=== PATIENT | female | born 1940 | race Two or more races ===

== ENCOUNTER 2017-01-03 11:08 | Outpatient (CLI) | payer MEDICARE, BC ==
[~2017-01-03 11:08] MED LIST: LEVO50TA; ROSU10TA; TRAZ-144; VENL50TA2
[2017-01-03 11:52] LABS: BASOPHILS % (AUTO) 0.7 % (0.0-2.0); EOSINOPHILS # (AUTO) 0.1 /CMM (0.0-0.7); EOSINOPHILS % (AUTO) 2.7 % (0.0-6.0); HEMATOCRIT 39 % (33-45); HEMOGLOBIN 12.7 g/dL (11.5-14.8); LYMPHOCYTES # (AUTO) 1.1 /CMM (0.8-4.8); LYMPHOCYTES % (AUTO) 22.8 % (20.0-44.0); MEAN CORPUSCULAR HEMOGLOBIN 29 PG (26.0-33.0); MEAN CORPUSCULAR HGB CONC 33 g/dl (31.0-36.0); MEAN CORPUSCULAR VOLUME 90 fL (82-100); MONOCYTES # (AUTO) 0.3 /CMM (0.1-1.30); MONOCYTES % (AUTO) 6.6 % (2.0-12.0); NEUTROPHILS # (AUTO) 3.3 /CMM (1.8-8.9); NEUTROPHILS % (AUTO) 67.2 % (43.0-81.0); PLATELET COUNT (AUTO) 221 /CMM (150-450); RDW COEFFICIENT OF VARIATION 14.1 (11.5-15.0); RED BLOOD CELL COUNT(AUTO) 4.35 MIL/uL (4.0-5.2)
[2017-01-03 12:03] LABS: CALCIUM, SERUM 8.6 mg/dL (8.5-10.1); CARBON DIOXIDE 34 mmol/L (21-32); CHLORIDE 107 mmol/L (98-107); GLUCOSE 98 mg/dL (74-106); POTASSIUM 4.6 mmol/L (3.5-5.1); SODIUM SERUM 144 mmol/L (136-145); UREA NITROGEN, BLOOD 15 mg/dL (7-18)
[2017-01-03 12:06] LABS: INR 0.95 (0.87-1.13); PROTHROMBIN TIME 10.1 SECS (9.5-12.7)
[2017-01-03 12:11] LABS: ALANINE AMINOTRANSFERASE 21 U/L (12-78); ALBUMIN 3.7 g/dL (3.4-5.0); ALKALINE PHOSPHATASE 66 U/L (46-116); ASPARTATE AMINOTRANSFERASE 17 U/L (15-37); BILIRUBIN,TOTAL 0.4 mg/dL (0.2-1.0); TOTAL PROTEIN, SERUM 6.7 g/dL (6.4-8.2)
[2017-01-03 12:17] LABS: CHOLESTEROL 180 mg/dL (<200); HDL CHOLESTEROL 80 mg/dL (40-60); LDL 85 mg/dL (0-99); THYROID STIMULATING HORMONE 0.974 uIU/mL (0.358-3.74); TRIGLYCERIDES 63 mg/dL (30-150)
== END 2017-01-03 23:59 | disposition home or self-care (01) ==
LOC: LAB 11:08
PROVIDERS: ATTEND Internal Medicine Interventional Cardiology
DX: I10 Essential (primary) hypertension (principal); C50.919 Malignant neoplasm of unspecified site of unspecified female breast; E21.3 Hyperparathyroidism, unspecified; M79.7 Fibromyalgia; R79.1 Abnormal coagulation profile
CPT/HCPCS: 36415; 80053-TC; 80061-TC; 82306; 84439-TC; 84443-TC; 85025-TC; 85610-TC; 85652-TC

== ENCOUNTER 2017-12-07 13:46 | Emergency (ER) | payer BC, MEDICARE ==
[~2017-12-07] VITALS: Ht 172.7 cm; Wt 77.1 kg
[~2017-12-07 13:46] MED LIST changes: -TRAZ-144; +TRAZ-182
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
--- NOTE | 2017-12-07 14:50 | NUR ---
SUPERVISOR SCRAP PREPARATION AT FOR BLOOD DRAW.
[2017-12-07 15:03] LABS: BASOPHILS # (AUTO) 0.1 /CMM (0.0-0.2); BASOPHILS % (AUTO) 1.1 % (0.0-2.0); EOSINOPHILS % (AUTO) 1.8 % (0.0-6.0); HEMATOCRIT 38 % (33-45); HEMOGLOBIN 12.4 g/dL (11.5-14.8); LYMPHOCYTES # (AUTO) 1.3 /CMM (0.8-4.8); LYMPHOCYTES % (AUTO) 26.9 % (20.0-44.0); MEAN CORPUSCULAR HEMOGLOBIN 30 PG (26.0-33.0); MEAN CORPUSCULAR HGB CONC 33 g/dl (31.0-36.0); MEAN CORPUSCULAR VOLUME 91 fL (82-100); MONOCYTES # (AUTO) 0.3 /CMM (0.1-1.30); MONOCYTES % (AUTO) 7.1 % (2.0-12.0); NEUTROPHILS # (AUTO) 2.9 /CMM (1.8-8.9); NEUTROPHILS % (AUTO) 63.1 % (43.0-81.0); PLATELET COUNT (AUTO) 205 /CMM (150-450); RDW COEFFICIENT OF VARIATION 12.8 (11.5-15.0); RED BLOOD CELL COUNT(AUTO) 4.16 MIL/uL (4.0-5.2); WHITE BLOOD COUNT (AUTO) 4.7 K/uL (4.3-11.0)
[2017-12-07 15:16] LABS: CALCIUM, SERUM 8.6 mg/dL (8.5-10.1); CARBON DIOXIDE 31 mmol/L (21-32); CHLORIDE 103 mmol/L (98-107); CREATININE 1.2 mg/dL (0.6-1.3); GLUCOSE 95 mg/dL (74-106); POTASSIUM 4.4 mmol/L (3.5-5.1); SODIUM SERUM 139 mmol/L (136-145); UREA NITROGEN, BLOOD 21 mg/dL (7-18)
[2017-12-07 15:22] LABS: ALANINE AMINOTRANSFERASE 14 U/L (12-78); ALBUMIN 3.5 g/dL (3.4-5.0); ALKALINE PHOSPHATASE 64 U/L (46-116); ASPARTATE AMINOTRANSFERASE 17 U/L (15-37); BILIRUBIN,DIRECT 0.1 mg/dL (0.0-0.2); BILIRUBIN,TOTAL 0.3 mg/dL (0.2-1.0); TOTAL PROTEIN, SERUM 6.4 g/dL (6.4-8.2)
[2017-12-07 16:45] VITALS: BP 125/77
--- NOTE | 2017-12-07 16:45 | NUR ---
Patient discharged to home in stable condition. Written and verbal after care instructions given. Patient verbalizes understanding of instruction.
== END 2017-12-07 16:46 | disposition home or self-care (01) ==
LOC: ER 13:47
DX: S16.1XXA Strain of muscle, fascia and tendon at neck level, initial encounter (principal); S39.012A Strain of muscle, fascia and tendon of lower back, initial encounter; S20.212A Contusion of left front wall of thorax, initial encounter; G44.209 Tension-type headache, unspecified, not intractable; Z88.0 Allergy status to penicillin; Z85.3 Personal history of malignant neoplasm of breast; F41.9 Anxiety disorder, unspecified; F32.9 Major depressive disorder, single episode, unspecified; V43.52XA Car driver injured in collision with other type car in traffic accident, initial encounter; Y93.89 Activity, other specified; Y92.89 Other specified places as the place of occurrence of the external cause; Y99.8 Other external cause status
CPT/HCPCS: 36415; 70450-TC; 71045-TC; 72040-TC; 72100-TC; 80048-TC; 80076-TC; 85025-TC; A4606; Z7610

== ENCOUNTER 2019-01-05 20:50 | Inpatient (IN) | payer BC, MEDICARE ==
[~2019-01-05] VITALS: Ht 172.7 cm; Wt 82.1 kg
[~2019-01-05 20:50] MED LIST changes: -ROSU10TA; +ROSU10TA2
--- NOTE | 2019-01-05 20:50 | NUR ---
BIB C/O EPIGASTRIC PAIN WITH PALPITATION SINCE 1749, TO ER BED 5, HOOKED TO MANAGER CONTRACT, PATIENT NOTED WITH HR OF 145, DR MILLAN AT BEDSIDE, IV PERIPHERAL LINE ESTABLISHED AT LAC 16G. VAGAL MANEUVER TRIED BY , NO CHANGE IN HEART RATE, HOOKED TO CARDIOVERTER. Addendum: 01/05/19 at 2355 by KARINA BIB C/O EPIGASTRIC PAIN WITH PALPITATION SINCE 1749, TO ER BED 5, HOOKED TO MANAGER CONTRACT, PATIENT NOTED SVT OF 145, DR MILLAN AT BEDSIDE, IV PERIPHERAL LINE ESTABLISHED AT LAC 16G. VAGAL MANEUVER TRIED BY , NO CHANGE IN HEART RATE, HOOKED TO CARDIOVERTER.
[2019-01-05] MEDS ORDERED: ADENOSINE 6 MG/2 ML VIAL ONE (21:10)
[2019-01-05 21:14] LABS: BASOPHILS # (AUTO) 0.1 /CMM (0.0-0.2); BASOPHILS % (AUTO) 0.6 % (0.0-2.0); EOSINOPHILS % (AUTO) 0.8 % (0.0-6.0); HEMATOCRIT 45 % (33-45); HEMOGLOBIN 14.6 g/dL (11.5-14.8); LYMPHOCYTES # (AUTO) 1.2 /CMM (0.8-4.8); LYMPHOCYTES % (AUTO) 13.9 % (20.0-44.0); MEAN CORPUSCULAR HGB CONC 33 g/dl (31.0-36.0); MEAN CORPUSCULAR VOLUME 92 fL (82-100); MONOCYTES # (AUTO) 0.5 /CMM (0.1-1.30); MONOCYTES % (AUTO) 5.6 % (2.0-12.0); NEUTROPHILS # (AUTO) 6.6 /CMM (1.8-8.9); NEUTROPHILS % (AUTO) 79.1 % (43.0-81.0); PLATELET COUNT (AUTO) 250 /CMM (150-450); RED BLOOD CELL COUNT(AUTO) 4.87 MIL/uL (4.0-5.2); WHITE BLOOD COUNT (AUTO) 8.4 K/uL (4.3-11.0)
--- NOTE | 2019-01-05 21:16 | NUR ---
INITIAL DOSE OF ADENOSINE 6MG RAPID IV PUSH GIVEN, , RN AND TECH AT BEDSIDE. NO CHANGE IN HEART RATE.
--- NOTE | 2019-01-05 21:22 | NUR ---
2ND DOSE OF ADENOSINE GIVEN 12MG WITH RAPID IV PUSH. MD AND RN AT BEDSIDE. PATIENTT'S HR TO 87BPM. PATIENT AOX4, VERBALIZED "I FEEL WEIRD". VSS.
[2019-01-05 21:23] LABS: CALCIUM, SERUM 9.3 mg/dL (8.5-10.1); CARBON DIOXIDE 28 mmol/L (21-32); CHLORIDE 99 mmol/L (98-107); CREATININE 1.4 mg/dL (0.6-1.3); GLUCOSE 136 mg/dL (74-106); POTASSIUM 4.4 mmol/L (3.5-5.1); SODIUM SERUM 138 mmol/L (136-145); UREA NITROGEN, BLOOD 25 mg/dL (7-18)
[2019-01-05 21:29] LABS: ALANINE AMINOTRANSFERASE 16 U/L (12-78); ALKALINE PHOSPHATASE 74 U/L (46-116); ASPARTATE AMINOTRANSFERASE 20 U/L (15-37); BILIRUBIN,DIRECT 0.1 mg/dL (0.0-0.2); BILIRUBIN,TOTAL 0.3 mg/dL (0.2-1.0); LIPASE 517 U/L (73-393); TOTAL PROTEIN, SERUM 7.5 g/dL (6.4-8.2)
[2019-01-05] MEDS ORDERED: ADENOSINE 6 MG/2 ML VIAL IVP ONE ×2 (21:30→22:30)
--- NOTE | 2019-01-05 21:53 | NUR ---
LACTIC ACID 2.3. MD AWARE.
[2019-01-05] MEDS ORDERED: IV NS 0.9% 1,000 ML BAG IV ONE (22:00)
--- NOTE | 2019-01-05 22:57 | NUR ---
DR CAMPUZANO AT BEDSIDE
[2019-01-05] MEDS ORDERED: Z GUARD REMEDY 2 OZ OINT TP PRN (23:30)
[2019-01-05] MEDS ORDERED: ACETAMINOPHEN 325 MG TABLET PO PRN (23:30)
[2019-01-05] MEDS ORDERED: ONDANSETRON HCL/PF 4 MG/2 ML VIAL IVP PRN (23:30)
--- NOTE | 2019-01-05 23:40 | NUR ---
REPORT GIVEN TO STEPHIE OF TELE UNIT
--- NOTE | 2019-01-05 23:47 | NUR ---
MS RN NOTES Received patient A/O x4, from ER via gurney accompanied by 2 ER staff. Admitted to [facility] 309-2 due to acute pancreatitis under the service of Dr. Castro. Assisted to bed comfortably, noted ambulatory with steady gait. Admission routine done. Belongings inventory completed by the assigned ENERGY CONSERVATION REPRESENTATIVE. Initial skin assessment done, no skin issues identified, skin intact. Admission ordered noted and carried out. Initiated IVF 1/2 NS @ 150ml/hr as ordered. Instructed patient to call for help when getting out of bed. Instructed on clear liquid diet, patient verbalized understanding. Kept bed low and locked, siderails up, call light within easy reach. Call light within easy reach. Will continue to monitor accordingly.
[2019-01-05] MEDS: IV 1/2NS 1000 ML 1,000 ML IV PRN (23:49)
[2019-01-06] VITALS: BP 151/67
[2019-01-06] MEDS: IV 1/2NS 1000 ML 1,000 ML IV PRN (06:34)
--- NOTE | 2019-01-06 06:39 | NUR ---
MS RN CLOSING NOTES Patient asleep, easily awaken. On RA, no SOB/respiratory distress noted. No complaints of discomfort/pain at this time. All due meds given as ordered, no ASE noted. All nursing needs attended, no new complaints. Kept on bed clean, dry and comfortable. Call light within easy reach. Endorsed to the next shift.
[2019-01-06] MEDS ORDERED: LEVOTHYROXINE SODIUM 50 MCG TABLET PO SCH (07:30)
[2019-01-06 07:57] LABS: BILIRUBIN,TOTAL 0.4 mg/dL (0.2-1.0); CREATININE 0.9 mg/dL (0.6-1.3); MAGNESIUM 1.9 mg/dL (1.8-2.4); PHOSPHORUS 3.8 mg/dL (2.5-4.9); POTASSIUM 4.1 mmol/L (3.5-5.1); TOTAL PROTEIN, SERUM 5.9 g/dL (6.4-8.2)
[2019-01-06 08:00] VITALS: BP 131/82
--- NOTE | 2019-01-06 08:00 | NUR ---
m/s hoop riveting machine operator helper: cardio consult seen and examined by dr. gracia at this time and okay for pt to go home today as stated. awaiting md de la garza and order.
[2019-01-06] MEDS ORDERED: IV NS 0.9% 1,000 ML IV PRN (08:07)
[2019-01-06 08:12] LABS: THYROID STIMULATING HORMONE 3.886 uIU/mL (0.358-3.74)
[2019-01-06 08:38] LABS: BASOPHILS % (AUTO) 0.6 % (0.0-2.0); EOSINOPHILS % (AUTO) 0.9 % (0.0-6.0); HEMATOCRIT 39 % (33-45); HEMOGLOBIN 12.5 g/dL (11.5-14.8); LYMPHOCYTES # (AUTO) 1.7 /CMM (0.8-4.8); LYMPHOCYTES % (AUTO) 26.9 % (20.0-44.0); MEAN CORPUSCULAR HGB CONC 33 g/dl (31.0-36.0); MEAN CORPUSCULAR VOLUME 91 fL (82-100); MONOCYTES # (AUTO) 0.5 /CMM (0.1-1.30); MONOCYTES % (AUTO) 7.3 % (2.0-12.0); NEUTROPHILS # (AUTO) 4.1 /CMM (1.8-8.9); NEUTROPHILS % (AUTO) 64.3 % (43.0-81.0); PLATELET COUNT (AUTO) 196 /CMM (150-450); RED BLOOD CELL COUNT(AUTO) 4.22 MIL/uL (4.0-5.2); WHITE BLOOD COUNT (AUTO) 6.3 K/uL (4.3-11.0)
[2019-01-06 08:40] LABS: PHOSPHORUS 3.8 mg/dL (2.5-4.9)
[2019-01-06 08:50] LABS: THYROID STIMULATING HORMONE 3.597 uIU/mL (0.358-3.74)
--- NOTE | 2019-01-06 09:00 | NUR ---
m/s resistance machine welder setter: md visit seen and examined by dr. webster at this time.
--- NOTE | 2019-01-06 10:00 | NUR ---
m/s rn allergy: notes received order to d'c pt home with Discharge instructions <after echo done, f/u with cardiology and PMD in 1 week. pt aware and faxed prescription to her pharmacy. order acknowledged. diet advance as ordered by md. will continue to monitor.
[2019-01-06 10:01] LABS: BAND % (MANUAL) 1 % (0.0-5.0); EOSINOPHILS % (MANUAL) 1 % (0-4); LYMPHOCYTES % (MANUAL) 32 % (16-48); MONOCYTES % (MANUAL) 7 % (0-11.0); NEUTROPHILS % (MANUAL) 59 (42-76)
[2019-01-06] MEDS ORDERED: METO25TA20 PO (10:03)
--- NOTE | 2019-01-06 11:50 | NUR ---
m/s optometry doctor: notes lunch served. instructed to call for assistance. pt to go home if tolerates advance diet.
[2019-01-06] MEDS ORDERED: METOPROLOL TARTRATE 25 MG TABLET PO SCH (12:00)
[2019-01-06 12:22] VITALS: BP 126/67
--- NOTE | 2019-01-06 12:30 | NUR ---
m/s tanning wheel operator: notes pt tolerated her regular (cardiac) food with no c/o n/v or any abdominal discomfort.
--- NOTE | 2019-01-06 13:00 | NUR ---
m/s road tester: notes discharge instructions with prescription given to pt and verbalized understanding. h/l removed with tip intact with no bleeding noted. pt called his friend to pick him up.
--- NOTE | 2019-01-06 13:40 | NUR ---
m/s automotive general manager: discharged discharged home in stable condition with all d'c papers and valuables via private car accompanied by friend.
[2019-01-06] MEDS ORDERED: TRAZODONE 50 MG TABLET PO SCH (22:00)
== END 2019-01-06 13:34 | disposition home or self-care (01) | DRG 438 ==
LOC: ER 20:55 → TELE 23:20 → MED 01-06 02:21
PROVIDERS: ADMIT Internal Medicine; ATTEND Student in an Organized Health Care Education/Training Program
DX: K85.90 Acute pancreatitis without necrosis or infection, unspecified (principal); N17.0 Acute kidney failure with tubular necrosis; I47.1 Supraventricular tachycardia; E87.2 Acidosis; E86.0 Dehydration; E78.5 Hyperlipidemia, unspecified; F41.9 Anxiety disorder, unspecified; I48.0 Paroxysmal atrial fibrillation; Z86.73 Personal history of transient ischemic attack (TIA), and cerebral infarction without residual deficits; Z86.011 Personal history of benign neoplasm of the brain; Z85.3 Personal history of malignant neoplasm of breast; Z90.49 Acquired absence of other specified parts of digestive tract; F32.9 Major depressive disorder, single episode, unspecified; Z88.0 Allergy status to penicillin; E03.9 Hypothyroidism, unspecified; I10 Essential (primary) hypertension
CPT/HCPCS: 36415; 71045-TC; 80048-TC; 80053-TC; 80061-TC; 80076-TC; 83605-TC; 83690-TC; 83735-TC; 84100-TC; 84439-TC; 84443-TC; 84484-TC; 85025-TC; 87081-TC; 93307-TC; G0378; J0153; J3490; J7030

== ENCOUNTER 2019-09-01 23:53 | Inpatient (IN) | payer BC ==
[~2019-09-01] VITALS: Ht 172.7 cm; Wt 86.2 kg
[~2019-09-01 23:53] MED LIST changes: +METO25TA20 PO
[2019-09-02] MEDS ORDERED: IV NS 0.9% 500 ML BAG IV ONE
[2019-09-02] MEDS ORDERED: ADENOSINE 6 MG/2 ML VIAL IVP ONE
--- NOTE | 2019-09-02 | NUR ---
bibra for c/o L sided CP and SVT. pt A, Ox4. w/ mild c/o mild "muscle CP" pt has rec'd adenosin 6mg IV architectural project captain. w/ LAC 20G IV line . unable to flush. pt was placed on a monitor, EMT at the bed side for ECG. HR on 140s. A new IV line on LAC was started and kept pt comfortable. on continuous monitoring.
[2019-09-02] MEDS ORDERED: ADENOSINE 6 MG/2 ML VIAL ONE (00:04)
[2019-09-02 00:24] LABS: MEAN CORPUSCULAR VOLUME 91 fL (82-100)
[2019-09-02 00:29] LABS: BASOPHILS # (AUTO) 0.1 /CMM (0.0-0.2); BASOPHILS % (AUTO) 1.1 % (0.0-2.0); EOSINOPHILS % (AUTO) 1.7 % (0.0-6.0); HEMATOCRIT 41 % (33-45); HEMOGLOBIN 13.4 g/dL (11.5-14.8); LYMPHOCYTES # (AUTO) 1.9 /CMM (0.8-4.8); LYMPHOCYTES % (AUTO) 29.1 % (20.0-44.0); MEAN CORPUSCULAR HGB CONC 33 g/dl (31.0-36.0); MONOCYTES # (AUTO) 0.6 /CMM (0.1-1.30); MONOCYTES % (AUTO) 9.3 % (2.0-12.0); NEUTROPHILS # (AUTO) 3.8 /CMM (1.8-8.9); NEUTROPHILS % (AUTO) 58.8 % (43.0-81.0); PLATELET COUNT (AUTO) 188 /CMM (150-450); RED BLOOD CELL COUNT(AUTO) 4.52 MIL/uL (4.0-5.2); WHITE BLOOD COUNT (AUTO) 6.5 K/uL (4.3-11.0)
--- NOTE | 2019-09-02 00:31 | NUR ---
x. ray at the bed side
[2019-09-02 00:43] LABS: CALCIUM, SERUM 8.8 mg/dL (8.5-10.1); CARBON DIOXIDE 30 mmol/L (21-32); CHLORIDE 103 mmol/L (98-107); CREATININE 1.2 mg/dL (0.6-1.3); GLUCOSE 113 mg/dL (74-106); POTASSIUM 4.2 mmol/L (3.5-5.1); SODIUM SERUM 141 mmol/L (136-145); UREA NITROGEN, BLOOD 26 mg/dL (7-18)
[2019-09-02 00:49] LABS: ALANINE AMINOTRANSFERASE 18 U/L (12-78); ALBUMIN 3.8 g/dL (3.4-5.0); ALKALINE PHOSPHATASE 60 U/L (46-116); ASPARTATE AMINOTRANSFERASE 18 U/L (15-37); B-TYPE NATRIURETIC PEPTIDE 243 PG/ML (0-125); BILIRUBIN,DIRECT 0.1 mg/dL (0.0-0.2); BILIRUBIN,TOTAL 0.3 mg/dL (0.2-1.0)
--- NOTE | 2019-09-02 00:50 | NUR ---
CALLED SUP FOR TELE BED
--- NOTE | 2019-09-02 01:57 | NUR ---
REPORT GIVEN TO ELINA
[2019-09-02] MEDS ORDERED: MAGNESIUM HYDROXIDE 30 ML UDC PO PRN (02:00)
[2019-09-02] MEDS ORDERED: ZOLPIDEM TARTRATE 5 MG TABLET PO PRN (02:00)
[2019-09-02] MEDS ORDERED: HYDROCODONE/APAP 5/325MG 1 EACH TABLET PO PRN (02:00)
[2019-09-02] MEDS ORDERED: ONDANSETRON HCL/PF 4 MG/2 ML VIAL IVP PRN (02:00)
[2019-09-02] MEDS ORDERED: MAG HYDROX/AL HYDROX/SIMETH 30 ML UDC PO PRN (02:00)
[2019-09-02] MEDS ORDERED: Z GUARD REMEDY 2 OZ OINT TP PRN (02:00)
[2019-09-02] MEDS ORDERED: ACETAMINOPHEN 325 MG TABLET PO PRN (02:00)
--- NOTE | 2019-09-02 02:00 | NUR ---
QUILL FIXER NOTES RECEIVED REPORT FROM ESTRELLA REEVES; AWAITING ARRIVAL OF PATIENT TO UNIT
[2019-09-02 02:18] VITALS: BP 151/57
--- NOTE | 2019-09-02 02:30 | NUR ---
LAP WELDER ADMITTING NOTES PATIENT ARRIVED ON UNIT VIA GURNEY 0230; A/OX4; BREATHING EVEN AND UNLABORED; TOLERATING ROOM AIR WELL; NO SOB NOTED; PATIENT AMBULATORY AND SKIN IS INTACT; PATIENT DENIES CHEST PAIN/CHEST MUSCLE PAIN AT THIS TIME; TELE MONITOR ATTACHED AND READS SINUS ROBERT 55BPM; L AC #18 SL INTACT AND PATENT; FLUSHING WELL; NO S/S OF REDNESS OR INFILTRATION NOTED; SAFETY PRECAUTIONS IMPLEMENTED; BED LOCKED IN LOW POSITION; SIDE RAILS X2; CALL LIGHT WITHIN REACH; WILL CONT TO MONITOR
--- NOTE | 2019-09-02 02:30 | NUR ---
PT WAS TRANSFERRED TO [facility]
[2019-09-02 02:57] VITALS: BP 151/57
[2019-09-02 04:00] VITALS: BP 122/75
--- NOTE | 2019-09-02 04:00 | NUR ---
SUPERVISOR KOSHER DIETARY SERVICE NOTES UNABLE TO OBTAIN PATIENT TEMPERATURE; NO MORE COVER/PROBES FOR THERMOMETER; WILL CONT TO MONITOR; LAST TEMP: 98.7F
--- NOTE | 2019-09-02 06:42 | NUR ---
DIRECTOR OF ROTC CLOSING NOTES PATIENT RESTING IN BED COMFORTABLY; A/OX4; BREATHING EVEN AND UNLABORED; TOLERATING ROOM AIR WELL; NO SOB NOTED; PATIENT DENIES CHEST PAIN; TELE MONITOR READS SINUS ROBERT 57BPM WITH 1ST DEGREE HB, PACS AND PVCS; L AC #18 SL INTACT AND PATENT; FLUSHING WELL; NO S/S OF REDNESS OR INFILTRATION NOTED; ALL NEEDS RENDERED; ABLE TO MAKE NEEDS KNOWN; SAFETY PRECAUTIONS IMPLEMENTED; BED LOCKED IN LOW POSITION; SIDE RAILS X2; CALL LIGHT WITHIN REACH; WILL ENDORSE HOME TO ONCOMING SHIFT; WILL INFORM ON COMING SHIFT REGARDING PATIENT MEDICATION;
--- NOTE | 2019-09-02 07:30 | NUR ---
RECEIVED PT. ALERT AND ORIENTED X 4. NO ACUTE DISTRESS.
[2019-09-02 08:00] VITALS: BP 135/69
[2019-09-02 08:42] LABS: THYROID STIMULATING HORMONE 4.974 uIU/mL (0.358-3.74)
[2019-09-02] MEDS: LEVOTHYROXINE SODIUM 50 MCG TABLET PO SCH ×2 (09:00→09:34)
--- NOTE | 2019-09-02 09:00 | NUR ---
DR. SIGNH IN TO SEE PT. ORDERS GIVEN.
[2019-09-02] MEDS: VENLAFAXINE XR 150 MG CAP.SR.24H PO SCH ×2 (09:34→09:42)
[2019-09-02] MEDS: ENOXAPARIN SODIUM 40 MG/0.4 ML DISP.SYRIN SQ SCH ×2 (09:36→09:42)
[2019-09-02 12:00] VITALS: BP 142/73
[2019-09-02] MEDS ORDERED: METOPROLOL TARTRATE 25 MG TABLET PO SCH (12:00)
[2019-09-02 12:08] VITALS: BP 142/73
--- NOTE | 2019-09-02 15:05 | NUR ---
ZAHRAA LIVE MD IN AND DISCHARGE ORDER WRITTEN,GIVEN ALL INSTRUCTIONS HEP LOCK OUT,GIVEN RX.AWARE TO FOLLOW UP WITH DR. SINGH.2ND TROPONIN DONE AND RESULT GIVEN TO DR. SINGH AND DR LIVE.TAKEN TO [facility] VIA W/C ACCOMPANIED BY CORRIE.ADRIANNA DE LA VEGA IN [facility].
[2019-09-02] MEDS ORDERED: TRAZODONE 50 MG TABLET PO SCH ×3 (22:00)
== END 2019-09-02 15:15 | disposition home or self-care (01) | DRG 282 ==
LOC: ER 23:54 → TELE 09-02 01:16
DX: I47.1 Supraventricular tachycardia (principal); I21.A1 Myocardial infarction type 2; I10 Essential (primary) hypertension; E78.5 Hyperlipidemia, unspecified; E03.9 Hypothyroidism, unspecified; D32.9 Benign neoplasm of meninges, unspecified; F32.9 Major depressive disorder, single episode, unspecified; F41.9 Anxiety disorder, unspecified; I25.2 Old myocardial infarction; I48.0 Paroxysmal atrial fibrillation; Z90.49 Acquired absence of other specified parts of digestive tract; Z85.3 Personal history of malignant neoplasm of breast
CPT/HCPCS: 36415; 71045-TC; 80048-TC; 80076-TC; 83690-TC; 83880; 84439-TC; 84443-TC; 84484-TC; 85025-TC; 85730-TC; 87081-TC; 93307-TC; G0378; J0153; J1650

== ENCOUNTER 2025-03-09 13:40 | Emergency (ER) | payer BC ==
[~2025-03-09] VITALS: Ht 172.7 cm; Wt 84.4 kg
[2025-03-09 14:47] LABS: PLATELET COUNT (AUTO) 255 K/uL (150-450); RED BLOOD CELL COUNT(AUTO) 4.05 MIL/uL (4.0-5.2); RED CELL DISTRIBUTION WIDTH 16.7 % (11.5-15.0); WHITE BLOOD COUNT (AUTO) 11.0 K/uL (4.3-11.0)
[2025-03-09 15:01] LABS: CALCIUM, SERUM 8.2 mg/dL (8.5-10.1); CREATININE 1.1 mg/dL (0.6-1.3); SODIUM SERUM 142 mmol/L (136-145); UREA NITROGEN, BLOOD 19 mg/dL (7-18)
[2025-03-09 15:06] LABS: ASPARTATE AMINOTRANSFERASE 19 U/L (15-37); TOTAL PROTEIN, SERUM 6.5 g/dL (6.4-8.2)
[2025-03-09 15:10] LABS: NT-PRO BNP 147.0 pg/mL (0-125)
[2025-03-09 17:16] LABS: APPEARANCE,URINE CLEAR (CLEAR); BLOOD, URINE NEGATIVE Ery/uL (NEGATIVE); LEUKOCYTE ESTERASE ,URINE 2+ (NEGATIVE); NITRITE, URINE NEGATIVE (NEGATIVE); UGLUCOSE NEGATIVE (NEGATIVE)
[2025-03-09 17:29] LABS: ADD URINE CULTURE YES; SQUAMOUS EPITHELIAL CELL,UR Many /HPF (None Seen)
[2025-03-09] MEDS ORDERED: SULF-293 PO (17:41)
[2025-03-09 18:07] VITALS: BP 141/68; TEMP 98.2; O2SAT 98
== END 2025-03-09 18:08 | disposition home or self-care (01) ==
LOC: ER 13:56
DX: N39.0 Urinary tract infection, site not specified (principal); R53.1 Weakness; I10 Essential (primary) hypertension; R06.02 Shortness of breath; Z79.899 Other long term (current) drug therapy; Z85.3 Personal history of malignant neoplasm of breast; Z88.0 Allergy status to penicillin
CPT/HCPCS: 36415; 71045-TC; 80048-TC; 80076-TC; 81001; 82962-TC; 83735-TC; 83880; 84439-TC; 84443-TC; 84484-TC; 85025-TC; 87086-TC